=== PATIENT | male | born 1985 | race Caucasian/White ===

== ENCOUNTER 2016-07-22 09:28 | Emergency (ER) | payer SELFPAY ==
[2016-07-22 09:38] VITALS: BP 119/69
--- NOTE | 2016-07-22 09:57 | ED Physician Documentation ---
Sore Throat/Dental Pain - HISTORIAN Historian: patient - HPI Stated Complaint: DENTAL PAIN Chief Complaint: Dental Pain Additional Information: multi dental caries w/pain rt upper exaberation Onset: days ago (3) Context: Fractured Tooth, Other (3 teeth off at gumline) Associated Symptoms: moderate Worsened By: heat, cold Further Comments: no - ROS CONST: no problems CVS/RESP: none. denies: chest pain, shortness of breath GI/: denies: problems urinating, nausea NEURO/PSYCH: none - PAST HX Past History: none (freq prev dental pain \visits) Allergies/Adverse Reactions: Allergies Allergy/AdvReac Type Severity Reaction Status Date / Time Sulfa (Sulfonamide Allergy Unknown Rash Verified 07/22/16 09:38 Antibiotics) [Sulfa(Sulfonamide Antibiotics)] Home Medications: Ambulatory Orders Medication Instructions Recorded NK [NK] 07/22/16 - SOCIAL HX Smoking History: less than 1 pack/day Alcohol Use: occasionally Drug Use: none - FAMILY HX Family History: No - VITAL SIGNS Vital Signs: Vital Signs Temp Pulse Resp BP Pulse Ox 97.8 F 68 18 119/69 99 07/22/16 09:30 07/22/16 09:30 07/22/16 09:30 07/22/16 09:30 07/22/16 09:30 - REVIEWED ASSESSMENTS Nursing Assessment Reviewed: Yes Vitals Reviewed: Yes Dental Pain Physical Exam - EXAM General Appearance: mild distress, moderate distress Head/Neck: head nml inspection, trachea midline, no lymphadenopathy Eyes: eyes nml inspection Mouth/Throat: lips nml, gums nml, pharynx nml, gum swelling around teeth, widespread dental decay Ear/Nose: nml inspection Respiratory: no resp. distress, breath sounds nml. No: respiratory distress, stridor CVS: reg. rate & rhythm, heart sounds nml. No: murmur, tachycardia Abdomen: soft, non-tender Extremities: non-tender, nml ROM Skin: warm/dry, normal color. No: cyanosis, diaphoresis Neuro/Psych: No: weakness, numbness, anxiety, depression Discharge Clincal Impression: dental sepsis Referrals: Primary Doctor,No [Primary Care Provider] - 2 Days Home Medications: Ambulatory Orders NK [NK] 07/22/16 Condition: Good Disposition: 01 HOME, SELF-CARE Decision to Admit: NO Decision Time: 09:57
== END 2016-07-22 09:55 | disposition home or self-care (01) ==
LOC: ED 09:28
DX: K02.9 Dental caries, unspecified (principal)
CPT/HCPCS: 99282; 99283

== ENCOUNTER 2016-10-11 10:57 | Emergency (ER) | payer SELFPAY ==
[2016-10-11 11:17] VITALS: BP 117/78
--- NOTE | 2016-10-11 11:17 | ED Physician Documentation ---
General Adult - HISTORIAN Historian: patient - HPI Chief Complaint: General Adult Timing: still present Severity: mild Further Comments: yes (Two days ago was layig on his left side and reached behind him to grab remaote and had a sudden pain in the right shoulder area. Has been constant, worse with movement. Has been doing housekeeping at [employer]. Has also been having some dental pain in the right upper gum area.) - ROS CONST: no problems CVS/RESP: none - PAST HX Past History: none Other History: none Surgeries/Procedures: none Immunizations: referred to PCP Allergies/Adverse Reactions: Allergies Allergy/AdvReac Type Severity Reaction Status Date / Time Sulfa (Sulfonamide Allergy Unknown Rash Verified 10/11/16 11:09 Antibiotics) [Sulfa(Sulfonamide Antibiotics)] Home Medications: Ambulatory Orders Medication Instructions Recorded Clindamycin HCl [Cleocin HCl] 300 mg PO QID #28 capsule 10/11/16 - SOCIAL HX Smoking History: greater than 1 pack/day Alcohol Use: rarely Drug Use: none - FAMILY HX Family History: No - VITAL SIGNS Vital Signs: Vital Signs Temp Pulse Resp BP Pulse Ox 119/69 07/22/16 09:55 - REVIEWED ASSESSMENTS Nursing Assessment Reviewed: Yes Vitals Reviewed: Yes General Adult Physical Exam - PHYSICAL EXAM GENERAL APPEARANCE: mild distress EENT: pharynx normal, other (multiple dental carries, small abcess to the right upper gum area). No: pharyngeal erythema NECK: thyroid normal, stiff neck (right), other (tenderness over the trapezius, no spasm noted). No: lymphadenopathy RESPIRATORY: no resp distress, chest non-tender, breath sounds normal. No: wheezes, rales, rhonchi CVS: reg rate & rhythm, heart sounds normal, no murmur ABDOMEN: soft SKIN: warm/dry, normal color NEURO: oriented X3, mood/affect nml, cognition normal Discharge Clincal Impression: Strain of neck muscle, Infected dental carries Referrals: Primary Doctor,No [Primary Care Provider] - 2 Days Home Medications: Ambulatory Orders Clindamycin HCl [Cleocin HCl] 300 mg PO QID #28 capsule 10/11/16 Comments: Warm compress to the neck area, do gentle range of motion exercises to the neck and shoulder area. Take some Aleve two tablets twice a day with food for the neck 5 days then as needed thereafter. Use a warm compress to the neck area. Take clindamycin for the dental problems. To see a dentist. Condition: Stable Disposition: 01 HOME, SELF-CARE Decision to Admit: NO Date of Decison to Admit: 10/11/16 Decision Time: 11:25
== END 2016-10-11 11:38 | disposition home or self-care (01) ==
LOC: ED 10:57
DX: S16.1XXA Strain of muscle, fascia and tendon at neck level, initial encounter (principal); X58.XXXA Exposure to other specified factors, initial encounter; Y93.9 Activity, unspecified; Y99.9 Unspecified external cause status; K02.9 Dental caries, unspecified
CPT/HCPCS: 99283

== ENCOUNTER 2016-11-29 20:50 | Emergency (ER) | payer SELFPAY ==
[2016-11-29 21:32] LABS: BASOPHILS % 0.5 (0.0-1.5); EOSINOPHILS % 2.7 % (0.0-6.8); MEAN CORPUSCULAR HEMOGLOBIN 28.8 pg (28.0-34.0); MEAN CORPUSCULAR VOLUME 86.3 fl (80.0-100.0); MONOCYTES % 7.4 % (0.0-11.0); NEUTROPHILS # 6.2 # k/uL (1.4-7.7)
--- NOTE | 2016-11-29 21:33 | ED Physician Documentation ---
Chest Pain - HISTORIAN Historian: patient, other (brother) - HPI Stated Complaint: cp Chief Complaint: Chest Pain Additional Information: lt infraclavicular anddownto inferior ribs and uop side neck. had plneumonia age 16 this side had chest tube Onset: other (1yr recently worse worse w/exertion) Timing: still present, worse Duration: waxing, waning Context: activity, exertion Severity: moderate Quality: pressure, tightness, dull, sharp Chest Pain Radiation: jaw, other (side neck) Worsened By: exertion Relieved By: rest - ROS CONST: no problems MS/LYMPH: neck pain EYES/ENT: none SKIN/ENDO: none NEURO/PSYCH: none - PAST HX MT risk factors: other (pneumojnia age 16 w/chest tube) Lung disease: none Surgeries/Procedures: other (chest tube t and a also several bad teeth) Allergies/Adverse Reactions: Allergies Allergy/AdvReac Type Severity Reaction Status Date / Time Penicillins Allergy Unknown Verified 11/29/16 21:18 Sulfa (Sulfonamide Allergy Unknown Rash Verified 11/29/16 21:18 Antibiotics) [Sulfa(Sulfonamide Antibiotics)] Home Medications: Ambulatory Orders Medication Instructions Recorded NK [NK] 11/29/16 - SOCIAL HX Smoking History: greater than 1 pack/day Alcohol Use: occasionally Drug Use: marijuana - FAMILY HX Family HX: none - VITAL SIGNS Vital Signs: Vital Signs Temp Pulse Resp BP Pulse Ox 97.6 F 77 20 136/69 100 11/29/16 20:50 11/29/16 20:50 11/29/16 20:50 11/29/16 20:50 11/29/16 20:50 - REVIEWED ASSESSMENTS Nursing Assessment Reviewed: Yes Vitals Reviewed: Yes ED Results Lab/Radiology - Radiology Radiology Impressions: cxr=wnl - Orders Orders: ED Orders Category Date Time Status Continuous EKG monitoring Q30M Care 11/29/16 21:[address] IV Lock 1T Care 11/29/16 21:08 Active CBC/PLATELET/DIFF Routine Lab 11/29/16 21:10 Received CMP Routine Lab 11/29/16 21:10 Received D DIMER Stat Lab 11/29/16 21:10 Received TROPONIN T ([facility]) Stat Lab 11/29/16 21:10 Received EKG WITH COMPARISON Stat Ther 11/29/16 Ordered Chest Pain Physical Exam - EXAM General Appearance: mild distress, moderate distress, anxious EENT: eye inspection normal Neck: nml inspection, no carotid bruit. No: JVD present, lymphadenopathy Respiratory: no resp. distress, chest non-tender, wheezes (mild bilateral) CVS: reg. rate & rhythm, no murmur Abdomen: soft, non-tender Skin: warm/dry, normal color. No: cyanosis, diaphoresis, jaundice, mottled Extremities: non-tender, normal range of motion, no evidence of injury, no edema Neuro: oriented X3, CN's nml as tested, motor nml, sensation nml, mood/affect nml Discharge Clincal Impression: chest back pain udo, suspect paravetebral sprain Referrals: Primary Doctor,No [Primary Care Provider] - 2 Days Comments: disc ct plus see thoracic specialist-pt declines for nowwill give ibu 600 tid plus valium for musc relaxation Condition: Good Disposition: 01 HOME, SELF-CARE Decision to Admit: NO Decision Time: 22:49
[2016-11-29 21:44] LABS: eGFR (African) > 60; eGFR (Non-African) > 60
[2016-11-29 23:12] VITALS: BP 130/60
--- NOTE | 2016-11-29 23:12 | Diagnostic Imaging Report ---
KONRAD FIELD [facility] [address] [facility].[address] [id number] Report Submission Date: Nov 29, 2016 10:36:39 PM CDT Patient Study Name: FANY VU Date: Nov 29, 2016 10:07:42 PM CDT Modality Type: CR Gender: M Description: CHEST : 89 Institution: [facility] Physician: KONRAD FIELD Chest - two views Clinical history: Intermittent chest pain that is getting worse. Findings: Examination of the chest in PA and lateral views with no prior film for comparison demonstrates the lungs to be clear. Cardiovascular and mediastinal silhouettes are within normal limits. Monitor leads superimpose the chest. Impression: 1. No active disease. Electronically signed on Nov 29, 2016 10:36:39 PM CDT by: Tay HOLBROOK
== END 2016-11-29 23:00 | disposition home or self-care (01) ==
LOC: ED 20:50
DX: R07.9 Chest pain, unspecified (principal); M54.9 Dorsalgia, unspecified
CPT/HCPCS: 71020; 80053; 84484; 85025; 85379; S1016

== ENCOUNTER 2017-03-16 23:39 | Emergency (ER) | payer SELFPAY ==
--- NOTE | 2017-03-16 23:44 | ED Physician Documentation ---
Sore Throat/Dental Pain - HISTORIAN Historian: patient - HPI Stated Complaint: dental pain Chief Complaint: Dental Pain Onset: days ago (1) Context: Fractured Tooth, Dental Caries, Possible Infection. denies: Foreign Body, Abscess Associated Symptoms: denies: fever, chills, sore throat, unable to swallow, R ear pain, L ear pain, swollen glands Further Comments: yes (He has several "bad teeth" states he has not seen a dentist lately. He denies any new injury to the tooth . He has no headache, no fever, No drainge. He has not tried any OTC meds.) - ROS CONST: no problems - PAST HX Past History: none Other History: none Immunizations: referred to PCP Allergies/Adverse Reactions: Allergies Allergy/AdvReac Type Severity Reaction Status Date / Time Penicillins Allergy Unknown Verified 03/16/17 23:46 Sulfa (Sulfonamide Allergy Unknown Rash Verified 03/16/17 23:46 Antibiotics) [Sulfa(Sulfonamide Antibiotics)] Home Medications: Ambulatory Orders Medication Instructions Recorded NK [NK] 11/29/16 - SOCIAL HX Smoking History: cigarettes Alcohol Use: none Drug Use: none - FAMILY HX Family History: No - VITAL SIGNS Vital Signs: Vital Signs Temp Pulse Resp BP Pulse Ox 130/60 11/29/16 23:07 - REVIEWED ASSESSMENTS Nursing Assessment Reviewed: Yes Vitals Reviewed: Yes Dental Pain Physical Exam - EXAM General Appearance: no acute distress, alert Head/Neck: head nml inspection, other (right upper back two teeth with broken teeth. No drainage noted. Gums not reddened ) Mouth/Throat: lips nml Respiratory: no resp. distress, breath sounds nml, respiratory distress Abdomen: soft Skin: warm/dry, normal color Neuro/Psych: weakness Discharge Clincal Impression: Dental caries Referrals: Primary Doctor,No [Primary Care Provider] - 2 Days Comments: Warm Salt water gargles Ibuprofen /Tylenol OTC for pain Clindamycin as prescribed See a dentist Follow up with PCP or Er for any concerns Condition: Stable Disposition: HOME, SELF-CARE Decision to Admit: NO Date of Decison to Admit: 03/16/17 Decision Time: 23:50
[2017-03-16 23:50] VITALS: BP 130/68
[2017-03-16] MEDS ORDERED: KETOROLAC TROMETHAMINE 60 MG/2 ML VIAL IM ONE (23:50)
[2017-03-16] MEDS ORDERED: CLINDAMYCIN HCL 150 MG CAPSULE PO ONE ×2 (23:50)
[2017-03-16] MEDS ORDERED: KETOROLAC TROMETHAMINE 60 MG/2 ML VIAL ONE (23:50)
== END 2017-03-16 23:58 | disposition home or self-care (01) ==
LOC: ED 23:39
DX: K02.9 Dental caries, unspecified (principal)
CPT/HCPCS: A9270; J1885; 96372; 99282

== ENCOUNTER 2017-09-02 19:36 | Emergency (ER) | payer SELFPAY ==
--- NOTE | 2017-09-02 20:50 | ED Physician Documentation ---
General Adult - HISTORIAN Historian: patient, spouse - HPI Stated Complaint: Sinus pressure/drainage & body rash Chief Complaint: General Adult Additional Information: Rash for 4 days. Began on left nose and now has rash all over body. Nose is red and swollen and painful. Left eye red and vision a little blurry. Rash begins as pink papule then develops pustule. He has not been scratching. Lesions are not pruritic. Denies impetigo in children, unusual exposures. Nose is painful. A month ago he had similar lesion left forearm except that it was larger. That lesion was treated with amoxicillin and prednisone and cleared. He did not complete those med courses and took the leftovers the last 3 days, w/o any improvement in current rash. Thinks rash on left forearm is from wiping nose with arm. No other modifying factors or associated signs. - ROS CONST: denies: fever - PAST HX Past History: none Allergies/Adverse Reactions: Allergies Allergy/AdvReac Type Severity Reaction Status Date / Time Penicillins Allergy Unknown Verified 09/02/17 21:33 Sulfa (Sulfonamide Allergy Unknown Rash Verified 09/02/17 21:33 Antibiotics) [Sulfa(Sulfonamide Antibiotics)] Home Medications: Ambulatory Orders Medication Instructions Recorded NK [NK] 11/29/16 - SOCIAL HX Smoking History: non-smoker - FAMILY HX Family History: No - VITAL SIGNS Vital Signs: Vital Signs Temp Pulse Resp BP Pulse Ox 98.3 F 90 16 133/72 97 09/02/17 19:36 09/02/17 19:36 09/02/17 19:36 09/02/17 19:36 09/02/17 19:36 - REVIEWED ASSESSMENTS Nursing Assessment Reviewed: Yes Vitals Reviewed: Yes Progress - Progress Progress: [address] Renea Barragan, roof bolter helper, [facility]. General Adult Physical Exam - PHYSICAL EXAM GENERAL APPEARANCE: moderate distress EENT: ENT inspection normal (pupils equal, conjugate eye movements. ), other ( Distal half nose is swollen, red, tender to touch. Otero 1.5 cm area left lateral nose, otero, abraded. Rim of left nostril with purulence. Multiple lesions up to 6 mm diameter over eyebrows, left eyelid, chin. Similar lesions scattered over extremities, back. ) NECK: normal inspection, supple. No: lymphadenopathy RESPIRATORY: no resp distress, breath sounds normal CVS: reg rate & rhythm, heart sounds normal ABDOMEN: normal bowel sounds BACK: normal inspection, no CVA tenderness SKIN: warm/dry, normal color, other (see raSH ) EXTREMITIES: non-tender, normal range of motion, no evidence of injury NEURO: CN's nml as tested, motor nml, sensation nml, cognition normal Discharge Clincal Impression: Cellulitis Qualifiers: Site of cellulitis: face Qualified Code(s): L03.211 - Cellulitis of face Clincal Impression: (Ruled Out): Knee pain, right, Dentalgia Referrals: Primary Doctor,No [Primary Care Provider] - 2 Days Additional Instructions: TAKE ALL THE ANTIBIOTICS PRESCRIBED UNTIL THEY ARE COMPLETELY GONE. USE THOROUGH HAND WASHING. IF YOU ARE NOT GETTING BETTER IN 48 HOURS, SEE YOUR PROVIDER OR RETURN TO THE ER. YOU CAN ALSO CALL THE [facility] AT [phone] AND ASK FOR THE DERMATOLOGY CLINIC. THE FILTER CHANGER I SPOKE TO THIS EVENING WAS DR. RENEA BARRAGAN. Condition: Fair Disposition: 01 HOME, SELF-CARE Decision to Admit: NO Decision Time: 21:30
[2017-09-02] MEDS: Lidocaine 1% 5ml(IM or SUTURE)(PAIN CLINIC) IJ ONE (21:35)
[2017-09-02] MEDS: CLINDAMYCIN HCL 150 MG CAPSULE PO ONE (21:35)
[2017-09-02] MEDS: MUPIROCIN 2% OINT 22GM TUBE TP ONE (22:05)
[2017-09-02 22:25] VITALS: BP 134/68
== END 2017-09-02 22:10 | disposition home or self-care (01) ==
LOC: ED 19:36
DX: L03.211 Cellulitis of face (principal)
CPT/HCPCS: A9270; J0696; 87070; 96372; 99283